=== PATIENT | female | born 1985 | race Two or more races ===

== ENCOUNTER 2020-03-14 09:00 | Inpatient (IN) | payer OTHER ==
[~2020-03-14] VITALS: Ht 167.6 cm; Wt 65.3 kg
[2020-03-14] MEDS ORDERED: TOPAMAX50 MG (09:10)
[2020-03-14] MEDS ORDERED: LEVOTHYROXINE25 MCG (09:10)
--- NOTE | 2020-03-14 09:19 | NUR ---
SE RECIBE PTE ALERTA Y ORIENTADA LA CUAL REFIERE DOLOR ABDOMINAL EDINSON Y OPRESIVO EN CUADRANTE INFERIOR DERECHO. PTE REFIERE PRESENTAR NAUSEAS NO EPISODIOS DE VOMITOS Y DIARREA. PTE REFIERE QUE TENIE DOS TUMORES EN OVARIO DERECHO. PTE LLEGA A ER POR ORDEN DE DR. JACKIE GARBER.
--- NOTE | 2020-03-14 09:39 | NUR ---
PACIENTE ALERTA Y ORIENTADA EN ALLEGRA SISSY ESFERAS. MR. BROOKS ORIENTA A PACIENTE SOBRE PROCEDIMIENTO Y TX, REFIERE ENTENDER. EXTRAE MUESTRAS DE LABORATORIO CON MEDIDAS ASEPTICAS Y ADMINISTRA MEDICAMENTOS MARY ORDEN MEDICA.
--- NOTE | 2020-03-14 12:39 | NUR ---
PTE ALERTA Y ORIENTADA POR SISSY DIMENSIONES. REFIERE TENER DOLOR ABDOMINAL DE 10, MARY LA ESCALA DE DOLOR DEL 0-10. SE LE ORIENTA SOBRE MEDICAMETNO DE DOLOR, SE LE OFRECE Y PTE REFIERE QUERERLA. SE LE VERIFICA S/V. SE LE ADMINISTRA MEDICAMENTO MARY ORDEN MEDICA. SE LE ORIENTA SOBRE CONTRASTE Y SE LE PROVEE, DANIELLE Y FAMILIAR REFIEREN ENTENDER. SE MANTIENE BAJO OBSERVACION POR CAMBIOS.
[2020-03-16] MEDS ORDERED: HYOSCYAMINE0.125 M1 SL (08:41)
[2020-03-16] MEDS ORDERED: NORFLEX100MG PO (08:41)
== END 2020-03-16 14:37 | disposition home or self-care (01) | DRG 743 ==
LOC: ER 09:00 → SURH 14:20 → SEC-K 14:20 → SURH 15:40
PROVIDERS: Surgery; ADMIT Obstetrics & Gynecology Gynecology; ATTEND Obstetrics & Gynecology Gynecology
PROC: 0DTH4ZZ Resection of Cecum, Percutaneous Endoscopic Approach (ICD-10-PCS; 2020-03-14)
PROC: 0DNW4ZZ Release Peritoneum, Percutaneous Endoscopic Approach (ICD-10-PCS; 2020-03-14)
PROC: 0UT64ZZ Resection of Left Fallopian Tube, Percutaneous Endoscopic Approach (ICD-10-PCS; 2020-03-14)
PROC: 0UB94ZZ Excision of Uterus, Percutaneous Endoscopic Approach (ICD-10-PCS; principal; 2020-03-14 14:15)
PROC: 0DTJ4ZZ Resection of Appendix, Percutaneous Endoscopic Approach (ICD-10-PCS; 2020-03-14 14:15)
DX: N80.2 Endometriosis of fallopian tube (principal); N80.5 Endometriosis of intestine; Z20.828 Contact with and (suspected) exposure to other viral communicable diseases; K66.0 Peritoneal adhesions (postprocedural) (postinfection); D25.0 Submucous leiomyoma of uterus; N70.11 Chronic salpingitis